=== PATIENT | female | born 1995 | race Two or more races ===

== ENCOUNTER 2018-02-13 06:39 | Inpatient (IN) | payer MEDICAID ==
[~2018-02-13] VITALS: Ht 154.9 cm; Wt 71.4 kg
[2018-02-13] MEDS ORDERED: OXYTOCIN 30U/ 0.9% NaCL 500ML 500 ML IV SCH (07:26)
[2018-02-13] MEDS ORDERED: LACTATED RINGERS 1,000 ML IV SCH ×2 (07:26→07:30)
[2018-02-13] MEDS ORDERED: SODIUM CITRATE/CITRIC ACID 30 ML UDC PO ONE (07:30)
[2018-02-13] MEDS ORDERED: LACTATED RINGERS 1,000 ML IVBOLUS ONE (07:30)
[2018-02-13] MEDS ORDERED: METOCLOPRAMIDE 5 MG/ML, 2ML IV ONE (07:30)
[2018-02-13 07:46] LABS: BASOPHILS # (AUTO) 0.03 x10^3/uL (0-0.1); BASOPHILS % (AUTO) 0 % (0-1); EOSINOPHILS # (AUTO) 0.02 x10^3/uL (0-0.4); EOSINOPHILS % (AUTO) 0 % (1-7); LYMPHOCYTES # (AUTO) 2.24 x10^3/uL (1-3.4); LYMPHOCYTES % (AUTO) 22 % (22-44); MD NO; MEAN CORPUSCULAR HEMOGLOBIN 33.1 pg (27.0-34.8); MEAN CORPUSCULAR HGB CONC 34.1 g/dL (32.4-35.8); MEAN CORPUSCULAR VOLUME 96.9 fL (80-100); MONOCYTES # (AUTO) 0.58 x10^3/uL (0.2-0.8); MONOCYTES % (AUTO) 6 % (2-9); NEUTROPHILS % (AUTO) 72 % (42-75); PLATELET COUNT 208 x10^3/uL (130-400); RED BLOOD COUNT 3.86 x10^6/uL (3.82-5.3); RED CELL DISTRIBUTION WIDTH 13.9 % (9.6-15.2)
[2018-02-13] MEDS ORDERED: SODIUM CITRATE/CITRIC ACID 30 ML UDC ONE (08:01)
[2018-02-13] MEDS ORDERED: NEWBORN KIT ONE (08:01)
[2018-02-13] MEDS ORDERED: METOCLOPRAMIDE 5 MG/ML, 2ML ONE (08:02)
[2018-02-13] MEDS ORDERED: morphine SULFATE/PF 0.5 MG/ML, 10ML ONE (08:15)
[2018-02-13] MEDS ORDERED: OXYTOCIN 30U/ 0.9% NaCL 500ML 500 ML ONE (08:21)
[2018-02-13] MEDS ORDERED: KETOROLAC 30 MG/1 ML ONE (09:06)
[2018-02-13] MEDS ORDERED: EPHEDRINE 50 MG/ML, 1ML ONE (09:59)
[2018-02-13] MEDS ORDERED: CEFAZOLIN 1,000 MG ONE (09:59)
[2018-02-13] MEDS ORDERED: WATER-INJECTION,STERILE 10 ML IV ONE (09:59)
[2018-02-13] MEDS ORDERED: ONDANSETRON 2MG/ML, 2ML ONE ×2 (09:59→13:55)
[2018-02-13] MEDS ORDERED: PHENYLEPHRINE 10 MG/ML ONE (09:59)
[2018-02-13] MEDS ORDERED: OXYTOCIN 10 UNITS/ML, 1ML ONE (09:59)
[2018-02-13] MEDS: LACTATED RINGERS 1,000 ML IV SCH ×4 (10:29→22:42)
[2018-02-13] MEDS: OXYTOCIN 30U/ 0.9% NaCL 500ML 500 ML IV SCH ×2 (10:29→20:29)
[2018-02-13] MEDS ORDERED: morphine SULFATE 10 MG/ML, 1ML IVPush PRN ×2 (10:30)
[2018-02-13] MEDS: PRENATAL VIT/IRON/FA 1 EACH TABLET PO SCH (10:30)
[2018-02-13] MEDS ORDERED: ONDANSETRON 2MG/ML, 2ML IV PRN (10:30)
[2018-02-13] MEDS ORDERED: METHYLERGONOVINE 0.2 MG/ML IM PRN (10:30)
[2018-02-13] MEDS ORDERED: CALCIUM CARBONATE 500 MG TAB.CHEW PO PRN (10:30)
[2018-02-13] MEDS ORDERED: MISOPROSTOL 200 MCG TABLET PR PRN (10:30)
[2018-02-13] MEDS ORDERED: KETOROLAC 30 MG/1 ML IM SCH (10:30)
[2018-02-13] MEDS ORDERED: HYDROmorphone 2 MG/ML, 1ML ONE (11:12)
[2018-02-13] MEDS ORDERED: HYDROmorphone 1 MG/ML, 1ML IV PRN (11:30)
[2018-02-13 12:20] VITALS: BP 107/55
[2018-02-13 13:20] VITALS: BP 117/66
[2018-02-13 16:15] VITALS: BP 113/67
[2018-02-13] MEDS: KETOROLAC 30 MG/1 ML IVPush SCH ×2 (17:01→22:41)
[2018-02-13 18:36] LABS: BASOPHILS # (AUTO) 0.04 x10^3/uL (0-0.1); BASOPHILS % (AUTO) 0 % (0-1); EOSINOPHILS # (AUTO) 0.01 x10^3/uL (0-0.4); EOSINOPHILS % (AUTO) 0 % (1-7); LYMPHOCYTES # (AUTO) 1.98 x10^3/uL (1-3.4); LYMPHOCYTES % (AUTO) 13 % (22-44); MD NO; MEAN CORPUSCULAR HEMOGLOBIN 33.8 pg (27.0-34.8); MEAN CORPUSCULAR HGB CONC 34.6 g/dL (32.4-35.8); MEAN CORPUSCULAR VOLUME 97.7 fL (80-100); MONOCYTES # (AUTO) 0.71 x10^3/uL (0.2-0.8); MONOCYTES % (AUTO) 5 % (2-9); NEUTROPHILS # (AUTO) 12.41 x10^3/uL (1.8-6.8); NEUTROPHILS % (AUTO) 82 % (42-75); PLATELET COUNT 175 x10^3/uL (130-400); RED BLOOD COUNT 3.25 x10^6/uL (3.82-5.3); RED CELL DISTRIBUTION WIDTH 13.6 % (9.6-15.2)
[2018-02-13 21:16] VITALS: BP 119/71
[2018-02-13 23:46] VITALS: BP 109/64
[2018-02-14] MEDS: LACTATED RINGERS 1,000 ML IV SCH ×2 (02:29→06:29)
[2018-02-14 03:36] VITALS: BP 119/71
[2018-02-14] MEDS: OXYcodone/APAP 5/325MG TABLET PO PRN ×4 (03:51→17:31)
[2018-02-14] MEDS: KETOROLAC 30 MG/1 ML IVPush SCH (04:47)
[2018-02-14] MEDS: OXYTOCIN 30U/ 0.9% NaCL 500ML 500 ML IV SCH (06:29)
[2018-02-14 07:10] VITALS: BP 106/68
[2018-02-14] MEDS: PRENATAL VIT/IRON/FA 1 EACH TABLET PO SCH (08:32)
[2018-02-14] MEDS: DOCUSATE 100 MG CAPSULE PO PRN (08:33)
[2018-02-14 20:00] VITALS: BP 109/70
[2018-02-15] MEDS ORDERED: IBUPROFEN 600 MG TABLET ONE (00:25)
[2018-02-15] MEDS: OXYcodone/APAP 5/325MG TABLET PO PRN ×3 (00:26→08:50)
[2018-02-15] MEDS: DOCUSATE 100 MG CAPSULE PO PRN (00:26)
[2018-02-15] MEDS: IBUPROFEN 600 MG TABLET PO PRN ×3 (00:26→18:39)
[2018-02-15 07:45] VITALS: BP 105/59
[2018-02-15] MEDS: PRENATAL VIT/IRON/FA 1 EACH TABLET PO SCH (08:50)
[2018-02-15] MEDS: HYDROcodone/APAP 5/325 TABLET PO PRN (18:39)
[2018-02-15 20:40] VITALS: BP 115/73
[2018-02-15] MEDS ORDERED: DIPH,PERTUSS(ACELL),TET VAC/PF NC IM-VACC ONE (21:30)
[2018-02-16] MEDS: HYDROcodone/APAP 5/325 TABLET PO PRN ×2 (02:23→09:42)
[2018-02-16] MEDS: IBUPROFEN 600 MG TABLET PO PRN ×2 (02:23→09:41)
[2018-02-16 07:37] VITALS: BP 115/55
[2018-02-16] MEDS: DOCUSATE 100 MG CAPSULE PO PRN (09:41)
[2018-02-16] MEDS: PRENATAL VIT/IRON/FA 1 EACH TABLET PO SCH (09:41)
[2018-02-16] MEDS ORDERED: IBUP-1222 PO (11:26)
[2018-02-16] MEDS ORDERED: PREN1TAB98 PO (11:32)
[2018-02-16] MEDS ORDERED: HYDR-3237 PO (11:33)
== END 2018-02-16 15:45 | disposition home or self-care (01) | DRG 765 ==
LOC: LDOP 06:39 → LDIP 07:28 → 2NW 12:23
PROVIDERS: ADMIT Obstetrics & Gynecology; ATTEND Obstetrics & Gynecology
PROC: 10D00Z1 Extraction of Products of Conception, Low, Open Approach (ICD-10-PCS; principal; 2018-02-13)
DX: O32.1XX0 Maternal care for breech presentation, not applicable or unspecified (principal); O99.354 Diseases of the nervous system complicating childbirth; O99.824 Streptococcus B carrier state complicating childbirth; G43.909 Migraine, unspecified, not intractable, without status migrainosus; Z37.0 Single live birth; Z3A.37 37 weeks gestation of pregnancy
CPT/HCPCS: 36415; 84112; 85025; 86850; 86900; 90715; J0690; J1170; J1885; J2274; J2405; J2370; J2590; J2765; J7120

== ENCOUNTER 2020-09-14 18:00 | Emergency (ER) | payer MEDICAID, OTHER ==
[~2020-09-14] VITALS: Ht 154.9 cm; Wt 58.3 kg
[~2020-09-14 18:00] MED LIST: HYDR-3237 PO; IBUP-1222 PO; PREN1TAB98 PO
[2020-09-14] MEDS ORDERED: KETOROLAC 30 MG/1 ML IM ONE ×2 (18:30→19:00)
[2020-09-14] MEDS ORDERED: KETOROLAC 30 MG/1 ML ONE (18:40)
--- NOTE | 2020-09-14 18:44 | NUR ---
PT IS A 25F COMPLAINING OF SUBSTERNAL CHEST PAIN X 4 WEEKS. TODAY THIS IS ASSOCIATED WITH SOME SOB AN TINGLING IN HER HANDS. SPOUSE AT BEDSIDE. 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 CALL LIGHT WITHIN REACH.
--- NOTE | 2020-09-14 18:58 | NUR ---
REPORT TO EILEEN OLMSTEAD
--- NOTE | 2020-09-14 19:04 | NUR ---
Bedside report rec'd from Sadie OLMSTEAD. Patient noted to be resting comfortably. at bedside.
[2020-09-14 19:21] LABS: BASOPHILS % (AUTO) 0 % (0-1); EOSINOPHILS % (AUTO) 1 % (1-7); LYMPHOCYTES % (AUTO) 35 % (22-44); MEAN CORPUSCULAR HEMOGLOBIN 31.2 pg (27.0-34.8); MEAN CORPUSCULAR HGB CONC 34.6 g/dL (32.4-35.8); MEAN PLATELET VOLUME 7.8 fL (7.4-10.4); MONOCYTES % (AUTO) 6 % (2-9); NEUTROPHILS % (AUTO) 58 % (42-75); PLATELET COUNT 304 x10^3/uL (130-400); RED BLOOD COUNT 4.37 x10^6/uL (3.82-5.3); RED CELL DISTRIBUTION WIDTH 13.3 % (9.6-15.2)
[2020-09-14 19:23] LABS: MD NO
[2020-09-14 19:32] LABS: ALBUMIN 3.9 g/dL (3.4-5.0); ANION GAP 6 mmol/L (5-15); CALCIUM 8.9 mg/dL (8.5-10.1); CHLORIDE 112 mmol/L (98-107)
[2020-09-14 19:37] LABS: ALANINE AMINOTRANSFERASE 17 U/L (12-78); ALKALINE PHOSPHATASE 68 U/L (45-117); BILIRUBIN,TOTAL 0.5 mg/dL (0.2-1.0); CREATININE 0.88 mg/dL (0.55-1.02); TROPONIN I < 0.015 ng/mL (0.000-0.045)
[2020-09-14 19:56] VITALS: BP 111/47
== END 2020-09-14 20:00 | disposition home or self-care (01) ==
LOC: ED 19:16
DX: R07.89 Other chest pain (principal)
CPT/HCPCS: 36415; 71046; 80053; 83880; 84484; 84703; 85025; 85379; 93005; 96372; 99285; J1885